=== PATIENT | female | born 1950 | race Caucasian/White ===

== ENCOUNTER → 2020-12-12 | Outpatient (CLI) | payer SELFPAY | LOC: EXRD 15:19 | DX: M79.641 Pain in right hand (principal); M79.642 Pain in left hand; M19.041 Primary osteoarthritis, right hand; M19.042 Primary osteoarthritis, left hand | CPT/HCPCS: 73130; 73564 ==

== ENCOUNTER → 2021-06-06 | Outpatient (CLI) | payer MEDICARE ==
[~2021-06-06] MED LIST: 8 HOUR PAIN RE650 MG PO; AMITRIPTYLINE H75 MG PO; GLUCOSAMINE CH1 EAC6 PO; HAIR SKIN PO; HAIR, SKIN & N1 EACH PO; LEVOTHYROXINE112 MCG PO; LIPITOR TAB 2020 MG PO; NEURONTIN300 MG PO; PRIMIDONE50 MG PO; PROAIR DIGIHAL90 MCG INH; WELLBUTRIN XL300 MG PO; [UNRECOGNIZED DRUG - OTHER] PO
[2021-06-06 11:50] LABS: RED BLOOD COUNT 4.29 M/UL (4.00-5.10); WHITE BLOOD COUNT 6.6 K/UL (4.5-11.0)
== END ==
LOC: OPSV2 11:00 → EDSTATUS 11:00 → OPSV2 11:04
PROVIDERS: Orthopaedic Surgery
DX: Z01.818 Encounter for other preprocedural examination (principal); M17.11 Unilateral primary osteoarthritis, right knee; R94.31 Abnormal electrocardiogram [ECG] [EKG]
CPT/HCPCS: 80048; 85025; 93005

== ENCOUNTER → 2021-06-19 | Outpatient (CLI) | payer MEDICARE ==
[~2021-06-19] MED LIST changes: +ASPIRIN 325MG325 MG PO; +BENZONATATE100 MG PO; +CETIRIZINE HCL10 MG PO; +FLONASE 0.05% N16 GM; +HYDROCODON-ACE1 EAC6 PO; +WOMEN'S 50 PLU1 EACH PO
== END ==
LOC: LAB 12:18
PROVIDERS: Orthopaedic Surgery
DX: Z01.812 Encounter for preprocedural laboratory examination (principal); M17.11 Unilateral primary osteoarthritis, right knee
CPT/HCPCS: 36415; 80048; 86850; 86900; 86901

== ENCOUNTER 2021-06-20 05:30 | Day surgery (SDC) | payer MEDICARE ==
[~2021-06-20] VITALS: Ht 167.6 cm; Wt 100.7 kg
[~2021-06-20 05:30] MED LIST changes: -AMITRIPTYLINE H75 MG PO; -ASPIRIN 325MG325 MG PO; -BENZONATATE100 MG PO; -CETIRIZINE HCL10 MG PO; -FLONASE 0.05% N16 GM; -HYDROCODON-ACE1 EAC6 PO; -WOMEN'S 50 PLU1 EACH PO
[2021-06-20] MEDS ORDERED: AMITRIPTYLINE H75 MG PO (13:12)
[2021-06-20] MEDS ORDERED: FLONASE 0.05% N16 GM (13:41)
[2021-06-20] MEDS ORDERED: CETIRIZINE HCL10 MG PO (13:41)
[2021-06-20] MEDS ORDERED: WOMEN'S 50 PLU1 EACH PO (13:44)
[2021-06-20] MEDS ORDERED: BENZONATATE100 MG PO (13:51)
[2021-06-21] MEDS ORDERED: ASPIRIN 325MG325 MG PO (08:30)
[2021-06-21] MEDS ORDERED: HYDROCODON-ACE1 EAC6 PO (08:33)
== END 2021-06-21 10:52 | disposition home or self-care (01) ==
LOC: OR 05:30 → EDSTATUS 07:30 → OR 08:50 → M/S 12:19 → OR 06-21 10:52
PROVIDERS: Orthopaedic Surgery
PROC: 3E0T3BZ Introduction of Anesthetic Agent into Peripheral Nerves and Plexi, Percutaneous Approach (ICD-10-PCS; principal; 2021-06-20 09:00)
PROC: 0SRC0J9 Replacement of Right Knee Joint with Synthetic Substitute, Cemented, Open Approach (ICD-10-PCS; principal; 2021-06-20 09:00)
DX: M17.11 Unilateral primary osteoarthritis, right knee (principal); E78.5 Hyperlipidemia, unspecified; E03.9 Hypothyroidism, unspecified; Z79.899 Other long term (current) drug therapy; Z88.1 Allergy status to other antibiotic agents
CPT/HCPCS: 73560; 76000; 97116-GP-CQ; 97161; 97166; 97535; C1776; J0171; J0690; J1100; J1170; J1885; J2405; J2704; J2795; J7120; P9045